=== PATIENT | female | born 1960 | race Caucasian/White ===

== ENCOUNTER 2020-01-05 10:16 | Day surgery (SDC) | payer OTHER ==
[~2020-01-05] VITALS: Ht 165.1 cm; Wt 93.3 kg
[~2020-01-05 10:16] MED LIST: ASCO500T8 PO; CALC-534 PO; MULT-658 PO
[2020-01-05] MEDS ORDERED: LACTATED RINGERS 1,000 ML IV SCH (10:26)
[2020-01-05] MEDS ORDERED: CHLORHEXIDINE 15 ML UDC MM ONE (10:30)
[2020-01-05 10:41] VITALS: BP 122/83
[2020-01-05] MEDS ORDERED: ACETAMINOPHEN 500 MG TABLET PO ONE (11:00)
[2020-01-05] MEDS ORDERED: GABAPENTIN 300 MG CAPSULE PO ONE (11:00)
[2020-01-05] MEDS ORDERED: SCOPOLAMINE 1MG PATCH TD SCH (11:00)
[2020-01-05] MEDS ORDERED: SILVER NITRATE STICK TP ONE (11:06)
[2020-01-05] MEDS ORDERED: BUPIVACAINE/PF-EPI 0.25% 1:200K ONE (11:06)
[2020-01-05 11:15] LABS: MICROSCOPIC NOT IND
[2020-01-05 11:19] LABS: CULTURE INDICATED? NO
[2020-01-05] MEDS ORDERED: OXYcodone 5 MG/5 ML ORAL.SOL UDC PO PRN (11:30)
[2020-01-05] MEDS ORDERED: HALOPERIDOL 5 MG/ML IV PRN (11:30)
[2020-01-05] MEDS ORDERED: hydrALAzine 20 MG/ML, 1ML IV PRN (11:30)
[2020-01-05] MEDS ORDERED: PROMETHAZINE 25 MG/ML, 1ML IV PRN (11:30)
[2020-01-05] MEDS ORDERED: HYDROmorphone 2 MG/ML, 1ML IVPush PRN (11:30)
[2020-01-05] MEDS ORDERED: MEPERIDINE/PF 25MG/ML,1ML IVPush PRN (11:30)
[2020-01-05] MEDS ORDERED: LABETALOL 5MG/ML, 20ML IV PRN (11:30)
[2020-01-05] MEDS ORDERED: MIDAZOLAM 1 MG/ML, 2ML ONE (11:46)
[2020-01-05] MEDS ORDERED: FENTANYL PF 250 MCG/5ML ONE (11:46)
[2020-01-05] MEDS ORDERED: CEFAZOLIN 1,000 MG ONE (13:24)
[2020-01-05] MEDS ORDERED: PROPOFOL 10 MG/ML, 20ML ONE (13:24)
[2020-01-05] MEDS ORDERED: GLYCOPYRROLATE 0.2MG/1ML, 5ML ONE (13:24)
[2020-01-05] MEDS ORDERED: DEXAMETHASONE 4 MG/ML, 1ML ONE (13:24)
[2020-01-05] MEDS ORDERED: ROCURONIUM 10MG/ML,5ML ONE (13:24)
[2020-01-05] MEDS ORDERED: ONDANSETRON 2MG/ML, 2ML ONE (13:24)
[2020-01-05] MEDS ORDERED: NEOSTIGMINE 1 MG/ML, 10ML ONE (13:24)
[2020-01-05] MEDS ORDERED: SUCCINYLCHOLINE 20 MG/ML, 10ML ONE (13:24)
[2020-01-05] MEDS ORDERED: KETOROLAC 30 MG/1 ML ONE (14:12)
[2020-01-05] MEDS ORDERED: FENTANYL PF 100 MCG/2ML ONE (14:12)
[2020-01-05] MEDS ORDERED: OXYcodone 5 MG/5 ML ORAL.SOL UDC ONE ×2 (14:13→14:18)
[2020-01-05] MEDS: FENTANYL PF 100 MCG/2ML IV PRN ×2 (14:19→14:27)
[2020-01-05] MEDS ORDERED: KETOROLAC 30 MG/1 ML IVPush PRN (14:30)
[2020-01-05] MEDS ORDERED: HYDROmorphone 1 MG/ML, 1ML INJ ONE (14:43)
== END 2020-01-05 18:10 | disposition home or self-care (01) ==
LOC: OUT 10:16
PROVIDERS: ATTEND Obstetrics & Gynecology
DX: D27.1 Benign neoplasm of left ovary (principal); N73.1 Chronic parametritis and pelvic cellulitis; N94.89 Other specified conditions associated with female genital organs and menstrual cycle; N73.6 Female pelvic peritoneal adhesions (postinfective); G43.909 Migraine, unspecified, not intractable, without status migrainosus; Z79.899 Other long term (current) drug therapy; Z88.0 Allergy status to penicillin; Z88.1 Allergy status to other antibiotic agents; Z88.2 Allergy status to sulfonamides; Z88.8 Allergy status to other drugs, medicaments and biological substances; Z90.710 Acquired absence of both cervix and uterus
CPT/HCPCS: 36415; 58661; 71045; 81003; 84702; 86850; 86900; 88112; 88305; 93005; J0330; J0690; J1100; J1170; J1885; J2250; J2405; J2704; J2710; J3010; J7120